=== PATIENT | male | born 1995 | race Two or more races ===

== ENCOUNTER 2021-09-07 15:27 | Emergency (ER) | payer OTHER ==
[~2021-09-07] VITALS: Ht 175.3 cm; Wt 79.4 kg
[2021-09-07 15:29] VITALS: BP 128/67
== END 2021-09-08 06:40 | disposition left against medical advice (07) ==
LOC: ER 15:27
DX: M54.2 Cervicalgia (principal); Z53.21 Procedure and treatment not carried out due to patient leaving prior to being seen by health care provider
CPT/HCPCS: 72040